=== PATIENT | female | born 1995 | race Caucasian/White ===

== ENCOUNTER 2017-10-21 17:00 | Emergency (ER) | payer OTHER ==
--- NOTE | 2017-10-21 18:08 | ER Document Report ---
HPI - HPI Patient complains to provider of: dysuria and frequency Onset: This morning Onset/Duration: Sudden Pain Level: 5 Context: 22 yo female c/o urinary dysuria and frequency since this am. No vaginal discharge. Some suprapubic discomfort. No fever, nausea or flank pain. Associated Symptoms: None Exacerbated by: Denies Relieved by: Denies Similar symptoms previously: Yes Recently seen / treated by doctor: No - ROS ROS below otherwise negative: Yes Systems Reviewed and Negative: Yes All other systems reviewed and negative Past Medical History - General Information source: Patient - Social History Smoking Status: Never Smoker Frequency of alcohol use: None Drug Abuse: None Lives with: Spouse/Significant other Family History: Reviewed & Not Pertinent - Medical History Medical History: Negative Surgical Hx: Negative Vertical Provider Document - CONSTITUTIONAL Agree With Documented VS: Yes Exam Limitations: No Limitations General Appearance: No Apparent Distress - GI/ABDOMEN Gastrointestinal: Abdomen Soft, Abdomen Tender - mild suprapubic and right pelvis - BACK Back: negative: CVA Tenderness-Right, CVA Tenderness-Left - NEURO Level of Consciousness: Alert Course - Re-evaluation Re-evalutation: 10/21/17 19:04 test is negative urinalysis shows 16 RBCs and 84 WBCs no bacteria but I did send a urine culture and treating her with Pyridium and nitrofurantoin pending the urine culture. I explained this to the patient and she understands - Vital Signs Vital signs: Temp Pulse Resp BP Pulse Ox 98.9 F 76 16 136/87 H 94 10/21/17 17:37 10/21/17 17:37 10/21/17 17:37 10/21/17 17:37 10/21/17 17:37 Discharge - Discharge Clinical Impression: Urinary tract infection Condition: Good Disposition: HOME, SELF-CARE Instructions: Nitrofurantoin ([facility]), Urinary Anesthetic Agent ([facility]), Urinary Tract Infection ([facility]) Additional Instructions: Plenty of water Urine culture is pending test was negative Take the antibiotic twice a day for a week Pyridium will reduce the pain when you urinate she can take that 3 times a day Return to the emergency room if symptoms worsen like abdominal pain fever flank pain vomiting Prescriptions: Nitrofurantoin/Nitrofuran Mac [Macrobid 100 mg Capsule] 100 mg PO BID #14 capsule Phenazopyridine HCl [Pyridium 100 Mg Tablet] 100 mg PO TIDP PRN #10 tablet PRN Reason:
[2017-10-21] MEDS ORDERED: NITROFURANTOIN MONOHYD/M-CRYST 100 MG CAPSULE PO ONE (18:29)
[2017-10-21 18:44] LABS: APPEARANCE,URINE SLIGHTLY-CLOUDY; BILIRUBIN,URINE NEGATIVE (NEGATIVE); COLOR,URINE YELLOW; GLUCOSE, URINE NEGATIVE (NEGATIVE); KETONES,URINE NEGATIVE (NEGATIVE); LEUKOCYTE ESTERASE,URINE MODERATE (NEGATIVE); NITRITE,URINE NEGATIVE (NEGATIVE); PROTEIN,URINE NEGATIVE (NEGATIVE); URINE SPECIFIC GRAVITY 1.017
[2017-10-21] MEDS ORDERED: PHENAZOPYRIDINE HCL 100 MG TABLET PO ONE (19:01)
[2017-10-21 19:36] VITALS: BP 121/68
== END 2017-10-21 19:37 | disposition home or self-care (01) ==
LOC: ER 17:00
DX: N39.0 Urinary tract infection, site not specified (principal)
CPT/HCPCS: 99283; 87086; 81025; 81001; J3490; J8499